=== PATIENT | male | born 1980 | race African-American/Black ===

== ENCOUNTER 2016-05-13 04:47 | Emergency (ER) | payer OTHER ==
[~2016-05-13] VITALS: Ht 175.3 cm; Wt 88.5 kg
[~2016-05-13 04:47] MED LIST: AMOXICILLIN875 MG PO; BENADRYL25 MG; NOHOMEMEDICATIONS; ULTRAM 50MG TAB50 MG PO; ZYRTEC10 M2
[2016-05-13 04:50] VITALS: BP 136/93
[2016-05-13] MEDS ORDERED: COMPLERA TABLE1 EACH PO (04:57)
[2016-05-13] MEDS ORDERED: ROBAXIN500 MG PO (05:04)
[2016-05-13] MEDS ORDERED: NAPROSYN500 MG PO (05:04)
[2016-05-13] MEDS ORDERED: TRAMADOL 50 MG50 MG PO (05:04)
== END 2016-05-13 05:35 | disposition home or self-care (01) ==
LOC: ER 04:47
DX: M54.5 Low back pain (principal); F17.200 Nicotine dependence, unspecified, uncomplicated

== ENCOUNTER 2016-07-05 18:25 | Inpatient (IN) | payer OTHER ==
[~2016-07-05] VITALS: Ht 175.3 cm; Wt 88.9 kg
--- NOTE | ~2016-07-05 | EKG ---
[address] [address] ELECTROCARDIOGRAM REPORT Name: TAMELA STARR Room #: 424-P ADM IN M.R.#: [id number] Admission: 07/05/16 Attend Phys: Sánchez Garcia MD Discharge: Date of : 84 Report #: [id number] THIS REPORT FOR: //name// [facility] ED Test Date: 2016-07-05 Test Time: 19:04:28 Pat Name: TAMELA STARR Department: Room: 424 Gender: M [employer] Developer: JULIANNA : 1980 Requested By: Apollo Escobedo Order Number: [id number] MD: Jack Wade Measurements Intervals [place] Rate: 69 P: 48 SD: 170 QRS: 34 QRSD: 67 T: 30 QT: 336 QTc: 360 Interpretive Statements Sinus rhythm No significant abnormality No previous ECG available for comparison Electronically Signed On 07-06-2016 9:14:23 CDT by Jack Wade [email or web address] <ELECTRONICALLY SIGNED> By: Jack Wade MD, [facility] 07/06/16 0914 [id number] Jack Wade MD, FACC /EPI
--- NOTE | ~2016-07-05 | HC ---
[facility] [place] [address] CONSULTATION Name: TAMELA STARR Room #: 424-P [facility] IN M.R.#: [id number] Admission: 07/05/16 Attend Phys: Sánchez Garcia MD Discharge: 07/07/16 Date of : 84 Report #: [id number] THIS REPORT FOR: //name// CC: ROSANA physician/PCP Sánchez Garcia REASON FOR CONSULTATION: Fever in the setting of HIV infection. HISTORY OF PRESENT ILLNESS: The patient is a 36-year-old known HIV positive, on Complera for the last 7 or 8 years with no complications and normal CD4 count. Viral load has been undetectable. His last followup visit for HIV Clinic was about [address] Saez from [facility]. He reports no opportunistic infections. He is on no other medications other than his antiretroviral. Three days ago developed some mild discomfort in his throat followed by the onset of fever, myalgias, arthralgias, headache, cough, mild pharyngitis symptoms and mild nausea. He presented to the Emergency Room with temperature of 103 degrees. He was given IV fluids, pain medication, started on Tamiflu, azithromycin and ceftriaxone. Oxygen saturation has remained stable. His chest x-ray was clear. Overall, he states he feels better today with improved appetite. Myalgias have improved. Cough with intermittent purulent sputum production. His exposures are to a couple of coworkers who had been ill with respiratory infection. No travel. No tuberculosis exposure. He has had no immunizations specifically for pneumonia or influenza. ALLERGIES: None known. MEDICATIONS: As noted on his MAR, which were reviewed. PAST MEDICAL HISTORY: Unremarkable other than his HIV. FAMILY HISTORY: Noncontributory. SOCIAL HISTORY: He is a smoker of cigarettes. No significant alcohol intake. Denies any recent partners. REVIEW OF SYSTEMS: No rash, arthritis, change in mental status, diarrhea, abdominal pain, dysuria or frequency, back pain. PHYSICAL EXAMINATION: VITAL SIGNS: He is afebrile, hemodynamically stable. GENERAL: Alert, cooperative and pleasant, in no acute distress, sitting up to the side of bed, ready to eat his breakfast. SKIN: Unremarkable. Moderately obese, no adenopathy. [facility] [address] [place] [address] CONSULTATION Name: TAMELA STARR Room #: 424-P [facility] IN [facility].#: [id number] Admission: 07/05/16 Attend Phys: Sánchez Garcia MD Discharge: 07/07/16 Date of : 84 Report #: [id number] HEENT: Unremarkable. NECK: Supple. LUNGS: Clear. HEART: Regular, without murmur. ABDOMEN: Soft, nontender, no hepatosplenomegaly or mass. LABORATORY STUDIES: Influenza antigen negative. Chest x-ray negative. Lactate 0.9. Sodium 134, potassium 3.8, bicarbonate 25, creatinine 1, bilirubin 1.1. Liver function test normal. Hemoglobin 13.4, white count 6.1, platelet count 218,000. Sedimentation rate 5. Urine antigen pending. Blood cultures are pending. IMPRESSION: A 36-year-old HIV positive with reported normal CD4 count and undetectable HIV RNA presents with acute febrile illness with respiratory tract infection. I am suspecting viral etiology, likely influenza. Still possible could be dealing with bacterial infection. I doubt opportunistic infection at this time. Recommend continuing Tamiflu, azithromycin and ceftriaxone. Awaiting culture results, antigens and viral respiratory panel. The patient clinically has improved over the last 8 hours and we will monitor today. If he continues this course, would likely dismiss tomorrow for outpatient therapy. <ELECTRONICALLY SIGNED> By: Philippe Mullins MD 07/11/16 0934 [id number] Philippe Mullins MD /nt
[~2016-07-05 18:25] MED LIST changes: +COMPLERA TABLE1 EACH PO; +NAPROSYN500 MG PO; +ROBAXIN500 MG PO; +TRAMADOL 50 MG50 MG PO
[2016-07-05 19:21] LABS: HEMATOCRIT 39.6 % (42.0-52.0); HEMOGLOBIN 13.4 gm/dL (14.0-18.0); MCH 25.1 pg (26.0-34.0); MCHC 33.9 g/dL (28.0-37.0); MCV 74.1 fL (80.0-100.0); PLATELET COUNT 218 thou/uL (150-400); RBC 5.35 mil/uL (4.50-6.00); RDW 12.7 % (10.5-14.5); WBC 6.1 thou/uL (4.0-11.0)
[2016-07-05 19:22] LABS: MANUAL DIFF YES
[2016-07-05 19:38] LABS: CALCIUM 8.8 mg/dL (8.5-10.1); POTASSIUM 3.8 mmol/L (3.5-5.1)
[2016-07-05 19:43] LABS: ALBUMIN 3.7 g/dL (3.4-5.0); TOTAL BILIRUBIN 1.1 mg/dL (<0.1-1.0); TOTAL PROTEIN 7.4 g/dL (6.4-8.2)
[2016-07-05 19:46] LABS: ABSOLUTE NEUTROPHILS 3.8 thou/uL (1.4-8.2); ANISOCYTOSIS 1+; ATYPICAL LYMPHS 2 %; HYPOCHROMASIA 1+; MICROCYTES 2+; TARGET CELLS OCCASIONAL; TOTAL CELL COUNT 100
[2016-07-05 19:47] LABS: POLYCHROMASIA OCCASIONAL
[2016-07-05] MEDS ORDERED: DOXYCYCLINE 10100 MG PO (21:06)
[2016-07-05] MEDS ORDERED: AZITHROMYCIN500 MG PO (21:07)
[2016-07-07 11:00] LABS: HEMATOCRIT 38.2 % (42.0-52.0); HEMOGLOBIN 12.5 gm/dL (14.0-18.0); MCH 24.8 pg (26.0-34.0); MCHC 32.8 g/dL (28.0-37.0); MCV 75.7 fL (80.0-100.0); PLATELET COUNT 205 thou/uL (150-400); RBC 5.04 mil/uL (4.50-6.00); RDW 12.9 % (10.5-14.5); WBC 4.1 thou/uL (4.0-11.0)
[2016-07-07 11:08] LABS: MANUAL DIFF YES
[2016-07-07 11:18] LABS: CALCIUM 8.5 mg/dL (8.5-10.1); CREATININE 0.9 mg/dL (0.6-1.3); POTASSIUM 3.7 mmol/L (3.5-5.1)
[2016-07-07 11:36] LABS: ABSOLUTE NEUTROPHILS 1.9 thou/uL (1.4-8.2); PLATELET ESTIMATE NORMAL; TOTAL CELL COUNT 100
[2016-07-07] MEDS ORDERED: OSELB75 PO (15:48)
[2016-07-07] MEDS ORDERED: CEFUROXIME500 MG PO (15:50)
[2016-07-07] MEDS ORDERED: AZITHROMYCIN 2250 MG PO (15:51)
[2016-07-08 23:07] LABS: INFLUENZA B Negative (Negative); METAPNEUMOVIRUS Negative (Negative)
== END 2016-07-07 16:23 | disposition home or self-care (01) | DRG 865 ==
LOC: ER 18:25 → 4E 19:48 → EROBS 19:48 → 4E 21:13
PROVIDERS: Hospitalist; Physician Assistant
DX: B34.9 Viral infection, unspecified (principal); B20 Human immunodeficiency virus [HIV] disease; D64.9 Anemia, unspecified; R05 Cough; F17.210 Nicotine dependence, cigarettes, uncomplicated
CPT/HCPCS: 10183